=== PATIENT | male | born 1965 | race Hispanic/Latino ===

== ENCOUNTER 2023-01-14 09:51 | Observation (INO) | payer OTHER, SELFPAY ==
[2023-01-14] MEDS ORDERED: Vancomycin HCl 500 MG VIAL ONE (10:31)
[2023-01-14] MEDS ORDERED: Vancomycin 1 GM VIAL ONE (10:31)
[2023-01-14] MEDS ORDERED: Boostrix 0.5 ML (Tdap) VIAL (>/=7 yrs of age) ONE (10:32)
[2023-01-14] MEDS ORDERED: Piperacillin/Tazobactam 4.5 GM VIAL ONE (10:32)
[2023-01-14 11:39] LABS: #Basophils 0.1 10x3/uL (0.0-0.2); #Monocytes 0.6 10x3/uL (0.0-1.1); #Neutrophils 5.2 10x3/uL (1.5-8.4); %Basophils 0.7 % (0.0-2.0); %Eosinophils 0.3 % (0.0-6.0); %Lymphocytes 31.4 % (18.0-47.0); %Monocytes 6.9 % (0.0-10.0); %Neutrophils 60.4 % (40.0-75.0); Hematocrit 47.7 % (38.8-50.0); Hemoglobin 16.1 g/dL (13.5-17.5); Mean Corpuscular HGB CONC 33.8 g/dL (32.0-36.0); Mean Corpuscular Hemoglobin 28.8 pg (27.0-33.0); Mean Corpuscular Volume 85.2 fl (81.2-95.1); Mean Platelet Volume 10.7 fl (7.4-10.4); Platelet Count 242 10x3/uL (150-450); RBC Distribution Width 13.1 % (11.5-14.5); White Blood Cell (WBC) Count 8.6 10x3/uL (3.5-10.5)
[2023-01-14 11:43] LABS: ALT (SGPT) 17 U/L (8-55); AST (SGOT) 21 U/L (5-34); Albumin 4.2 g/dL (3.5-5.0); Alkaline Phosphatase 84 U/L (40-110); Anion Gap 14 mmol/L (10-20); BUN (Urea Nitrogen) 12 mg/dL (8.4-25.7); Bilirubin, Total 0.6 mg/dL (0.2-1.2); Calc. Creatinine Clearance 0 mL/min (70-130); Calcium 9.1 mg/dL (7.8-10.44); Carbon Dioxide 23 mmol/L (22-29); Chloride 107 mmol/L (98-107); Estimated GFR 96; Glucose 124 mg/dL (70-105); Potassium 3.6 mmol/L (3.5-5.1); Protein, Total 7.2 g/dL (6.0-8.3); Sodium 140 mmol/L (136-145)
[2023-01-14] MEDS ORDERED: Morphine 4 MG/ML VIAL ONE (11:54)
[2023-01-14] MEDS ORDERED: Ketorolac Tromethamine 30 MG/ML VIAL ONE (11:55)
[2023-01-14] MEDS ORDERED: Docusate 100 MG CAP PO PRN (12:39)
[2023-01-14] MEDS ORDERED: Electrolyte Replacement Protocol 1 EACH FS SCH (12:45)
[2023-01-14] MEDS ORDERED: HYDROcodone/Acetaminophen 5/325 mg Tablet PO PRN (12:46)
[2023-01-14] MEDS ORDERED: Ondansetron PF 4 MG/2 ML Vial IVP PRN (12:48)
[2023-01-14] MEDS ORDERED: Acetaminophen 325 MG TAB PO PRN (12:48)
[2023-01-14] MEDS ORDERED: Ondansetron ODT 4 MG TAB PO PRN (12:48)
[2023-01-14] MEDS ORDERED: Morphine 2 MG/ML VIAL SLOW IVP PRN (13:59)
[2023-01-14] MEDS ORDERED: Lisinopril 5 MG TAB PO SCH (14:00)
[2023-01-14] MEDS: Lactated Ringer's 1,000 ML IV SCH (14:40)
[2023-01-14 16:11] VITALS: BMI 29.0
[2023-01-14] MEDS: Piperacillin/Tazobactam 3.375 GM in Sodium Chloride 0.9% 100 ML IVPB SCH (18:31)
[2023-01-14] MEDS ORDERED: Vancomycin 1 GM in Premix Bag 1 BAG IVPB SCH (21:00)
[2023-01-14] MEDS: VANCOMYCIN 1.25 GM/250 ML BAG 1.25 GM in Premix Bag 1 BAG IVPB SCH (22:14)
[2023-01-15] MEDS: Lactated Ringer's 1,000 ML IV SCH ×3 (00:23→19:48)
[2023-01-15] MEDS: Piperacillin/Tazobactam 3.375 GM in Sodium Chloride 0.9% 100 ML IVPB SCH ×3 (02:40→18:48)
[2023-01-15 03:57] LABS: #Basophils 0.1 10x3/uL (0.0-0.2); #Eosinphils 0.1 10x3/uL (0.0-0.5); #Monocytes 0.8 10x3/uL (0.0-1.1); #Neutrophils 5.4 10x3/uL (1.5-8.4); %Basophils 0.8 % (0.0-2.0); %Eosinophils 1.2 % (0.0-6.0); %Lymphocytes 31.8 % (18.0-47.0); %Monocytes 8.8 % (0.0-10.0); %Neutrophils 57.1 % (40.0-75.0); Hematocrit 42.2 % (38.8-50.0); Hemoglobin 14.2 g/dL (13.5-17.5); Mean Corpuscular HGB CONC 33.6 g/dL (32.0-36.0); Mean Corpuscular Volume 86.3 fl (81.2-95.1); Mean Platelet Volume 10.2 fl (7.4-10.4); Platelet Count 214 10x3/uL (150-450); RBC Distribution Width 13.2 % (11.5-14.5); Red Blood Cell (RBC) Count 4.89 10x6/uL (4.32-5.72); White Blood Cell (WBC) Count 9.5 10x3/uL (3.5-10.5)
[2023-01-15 04:01] LABS: Anion Gap 13 mmol/L (10-20); BUN (Urea Nitrogen) 13 mg/dL (8.4-25.7); Calc. Creatinine Clearance 109 mL/min (70-130); Calcium 8.1 mg/dL (7.8-10.44); Carbon Dioxide 20 mmol/L (22-29); Chloride 108 mmol/L (98-107); Estimated GFR 100; Glucose 104 mg/dL (70-105); Potassium 3.8 mmol/L (3.5-5.1); Sodium 137 mmol/L (136-145)
[2023-01-15] MEDS: Lisinopril 5 MG TAB PO SCH (09:36)
[2023-01-15] MEDS ORDERED: VANCOMYCIN 1.25 GM/250 ML BAG ONE (09:54)
[2023-01-15] MEDS: VANCOMYCIN 1.25 GM/250 ML BAG 1.25 GM in Premix Bag 1 BAG IVPB SCH (09:55)
[2023-01-15 22:36] LABS: Vancomycin, Trough 12.2 ug/mL
[2023-01-15] MEDS ORDERED: Vancomycin 1.5 GRAM/300 ML BAG 1.5 GM in Premix Bag 1 BAG IVPB SCH (23:00)
[2023-01-16] MEDS: VANCOMYCIN 1.25 GM/250 ML BAG 1.25 GM in Premix Bag 1 BAG IVPB SCH (00:31)
[2023-01-16] MEDS: Piperacillin/Tazobactam 3.375 GM in Sodium Chloride 0.9% 100 ML IVPB SCH (03:36)
[2023-01-16] MEDS: Lactated Ringer's 1,000 ML IV SCH (07:35)
[2023-01-16] MEDS: Lisinopril 5 MG TAB PO SCH (10:50)
[2023-01-16 10:51] VITALS: BP 161/96
[2023-01-16 11:11] VITALS: TEMP 97.9
== END 2023-01-16 11:20 | disposition home or self-care (01) ==
LOC: CSHERS 09:51 → CSHTELE 11:33
PROVIDERS: ADMIT Hospitalist; ATTEND Hospitalist
DX: S61.442A Puncture wound with foreign body of left hand, initial encounter (principal); I10 Essential (primary) hypertension; Z79.899 Other long term (current) drug therapy; W26.8XXA Contact with other sharp object(s), not elsewhere classified, initial encounter
CPT/HCPCS: 36415; 80048; 80053; 80202; 85025; 85652; 86140; 87040; 90471; 90715; 94760; 96372; 96374; 96375; 96376; G0378; J1650; J1885; J2270; J2543; J3370; J3490; J7120